=== PATIENT | male | born 1940 | race Caucasian/White ===

== ENCOUNTER 2019-12-04 18:22 | Emergency (ER) | payer OTHER, BC ==
[~2019-12-04] VITALS: Ht 180.3 cm; Wt 99.3 kg
== END 2019-12-04 21:22 | disposition home or self-care (01) ==
LOC: ER 18:22
DX: S01.111A Laceration without foreign body of right eyelid and periocular area, initial encounter (principal); R26.9 Unspecified abnormalities of gait and mobility; W18.39XA Other fall on same level, initial encounter; Y93.01 Activity, walking, marching and hiking; Y92.128 Other place in nursing home as the place of occurrence of the external cause; Y99.8 Other external cause status

== ENCOUNTER 2019-12-06 12:46 | Emergency (ER) | payer BC ==
[~2019-12-06] VITALS: Ht 182.9 cm; Wt 95.3 kg
[2019-12-06 13:25] LABS: ABSOLUTE NEUTROPHILS 12.5 thou/uL (1.4-8.2); BASOPHILS 0.2 % (0.0-2.0); HEMATOCRIT 42.8 % (42.0-52.0); MCHC 32.8 g/dL (28.0-37.0); MCV 85.5 fL (80.0-100.0); MONOCYTES 3.5 % (1.0-8.0); PLATELET COUNT 190 thou/uL (150-400); POLYS 92.3 % (36.0-66.0); RDW 15.8 % (10.5-14.5); WBC 13.5 thou/uL (4.0-11.0)
[2019-12-06 13:49] LABS: ANION GAP 9 mmol/L (7-16); BUN 22 mg/dL (7-18); CALCIUM 9.8 mg/dL (8.5-10.1); CHLORIDE 99 mmol/L (98-107); CO2 29 mmol/L (21-32); CREATININE 1.4 mg/dL (0.7-1.3); GLUCOSE 160 mg/dL (74-106); POTASSIUM 4.1 mmol/L (3.5-5.1); SODIUM 137 mmol/L (136-145)
[2019-12-06 13:57] LABS: MAGNESIUM 1.6 mg/dL (1.8-2.4); TROPONIN-I <0.06 ng/mL (<0.06)
[2019-12-06 15:46] LABS: URINE BLOOD 1+ (Negative); URINE CLARITY CLEAR; URINE COLOR YELLOW; URINE GLUCOSE-RANDOM* NEGATIVE (Negative); URINE KETONES 1+ (Negative); URINE LEUKOCYTES-REFLEX NEGATIVE (Negative); URINE NITRITE-REFLEX NEGATIVE (Negative); URINE PROTEIN (DIPSTICK) 2+ (Negative); URINE SPECIFIC GRAVITY >= 1.030 (1.005-1.035); URINE UROBILINOGEN 0.2 E.U./dl (0.2-1.0)
[2019-12-06 15:49] LABS: ICTOTEST (BILI CONFIRMATORY) Negative (Negative)
[2019-12-06 15:50] LABS: URINE BILIRUBIN NEGATIVE (Negative)
[2019-12-06 15:55] LABS: MUCUS >6 Heavy strn/LPF (None Seen); SQUAMOUS 0-3 Few /LPF (0-3)
[2019-12-06 15:56] LABS: CASTS None Seen /LPF (None Seen)
[2019-12-06 15:57] LABS: AMORPHOUS URATES Few /LPF (None Seen); BACTERIA-REFLEX None Seen /HPF (None Seen); URINE RBC 3-10 Few /HPF (0-2); URINE WBC-REFLEX 0-5 Rare /HPF (0-5)
[2019-12-06 16:39] LABS: INR 1.1; PROTIME 11.2 Seconds (9.3-11.4)
--- NOTE | 2019-12-07 08:53 | EKG ---
[facility] [place] [address] ELECTROCARDIOGRAM REPORT Name: TOMMIE LOUISE Room #: DEP [facility]#: [id number] Admission: 12/06/19 Attend Phys: Discharge: 12/06/19 Date of : 40 Report #: [id number] THIS REPORT FOR: cc: Santos Tejada MD, Mark A. MD Lundgren, Craig H. MD [facility] ~ THIS REPORT FOR: //name// [facility] ED Test Date: 2019-12-06 Test Time: 13:03:20 Pat Name: TOMMIE LOUISE Department: Room: Gender: Zinc Plater: : 1940 Requested By: Mitchel Diaz Order Number: [id number] MD: Emmanuel Arnold Measurements Intervals [place] Rate: 117 P: [place]: QRS: 128 QRSD: 146 T: 5 QT: 358 QTc: 500 Interpretive Statements Atrial fibrillation occasional premature ventricular complexes RBBB and LPFB No previous ECG available for comparison Electronically Signed On 12-07-2019 8:53:39 CDT by Emmanuel Arnold [email or web address] <ELECTRONICALLY SIGNED> By: Emmanuel Arnold MD, [facility] 12/07/19 0853 [id number] 1303 Emmanuel Arnold MD, [facility] /EPI
== END 2019-12-06 15:30 | disposition short-term general hospital (02) ==
LOC: ER 12:46
PROVIDERS: Emergency Medicine
DX: S06.5X9A Traumatic subdural hemorrhage with loss of consciousness of unspecified duration, initial encounter (principal); R11.2 Nausea with vomiting, unspecified; J02.9 Acute pharyngitis, unspecified; R41.82 Altered mental status, unspecified; R53.83 Other fatigue; R53.1 Weakness; W22.09XA Striking against other stationary object, initial encounter; Y93.89 Activity, other specified; Y92.128 Other place in nursing home as the place of occurrence of the external cause; Y99.8 Other external cause status